=== PATIENT | female | born 1955 | race Two or more races ===

== ENCOUNTER 2022-09-06 13:25 | Inpatient (IN) | payer BC, MEDICAID ==
[~2022-09-06] VITALS: Ht 157.5 cm; Wt 52.7 kg
[~2022-09-06 13:25] MED LIST: enoxaparin 40mg/0.4ml syringe SUBCUT SCH
[2022-09-06 14:00] LABS: BASOPHILS % (AUTO) 0.3 % (0-1); HEMATOCRIT 42.4 % (35.0-45.0); LYMPHOCYTES # (AUTO) 1.3 X10'3 (1.1-4.8); LYMPHOCYTES % (AUTO) 26.7 % (21-51); MEAN CORPUSCULAR HEMOGLOBIN 30.4 PG (27.0-31.0); MEAN CORPUSCULAR VOLUME 92.1 FL (78-98); MEAN PLATELET VOLUME 8.4 FL (7.4-10.4); MONOCYTES # (AUTO) 0.1 X10'3 (0-0.9); MONOCYTES % (AUTO) 1.9 % (2-12); NEUTROPHILS # (AUTO) 3.3 X10'3 (1.8-7.7); NEUTROPHILS % (AUTO) 70.1 % (42-75); PLATELET COUNT 207 X10'3 (140-440); RED BLOOD COUNT 4.61 X10'6 (4.20-5.60); RED CELL DISTRIBUTION WIDTH 13.5 % (11.5-14.5); WHITE BLOOD COUNT 4.7 X10'3 (4.5-11.0)
[2022-09-06 14:19] LABS: APTT 28 SECONDS (22-32)
[2022-09-06 14:25] LABS: ALANINE AMINOTRANSFERASE 74 U/L (12-78); ALBUMIN 3.9 G/DL (3.4-5.0); ALKALINE PHOSPHATASE 192 IU/L (46-116); ANION GAP 9 (8-16); ASPARTATE AMINO TRANSFERASE 65 U/L (10-37); BILIRUBIN,TOTAL 0.4 MG/DL (0.1-1.0); BLOOD UREA NITROGEN 10 MG/DL (7-18); BUN/CREATININE RATIO 12.5 (10.0-20.0); CALCIUM 10.1 MG/DL (8.5-10.1); CHLORIDE 107 MMOL/L (99-107); GLUCOSE 131 MG/DL (70-104); POTASSIUM 4.3 MMOL/L (3.5-5.1); SODIUM 142 MMOL/L (135-145); TOTAL CARBON DIOXIDE 26.5 MMOL/L (24-32); TOTAL PROTEIN 7.8 G/DL (6.4-8.2); eGFR 71 ML/MIN
--- NOTE | 2022-09-06 14:46 | NUR ---
RN OBTAINING IV AT THIS TIME.
--- NOTE | 2022-09-06 15:06 | NUR ---
PT HAVING NEURO CONSULT AT THIS TIME.
[2022-09-06] MEDS ORDERED: iohexol 350MG/ML 100ml bottle IV ONE (15:34)
[2022-09-06 15:40] LABS: CLARITY,URINE CLEAR (Clear); COLOR,URINE STRAW (Yellow); GLUCOSE, URINE NEGATIVE (Neg); KETONES,URINE NEGATIVE (Neg); LEUKOCYTE ESTERASE ,URINE NEGATIVE (Neg); NITRITES, URINE NEGATIVE (Neg); OCCULT BLOOD,URINE MODERATE (Neg); PH,URINE 6.5 (4.8-8.0); PROTEIN,URINE NEGATIVE (Neg); UROBILINOGEN,URINE 0.2 E.U/dL (0.2-1.0)
[2022-09-06 15:52] LABS: SQUAMOUS EPITHELIAL CELL,UR FEW /LPF (FEW); UA COLLECTION TYPE CLN CATCH MIDSTREAM
[2022-09-06 15:53] LABS: BACTERIA,URINE FEW /HPF (Neg); WBC,URINE 0-4 /HPF (0-4)
[2022-09-06 15:54] LABS: CREATINE KINASE 142 U/L (26-192)
[2022-09-06] MEDS ORDERED: methylPREDNISolone sod succ 125mg/2ml vial IV ONE (15:55)
--- NOTE | 2022-09-06 16:17 | NUR ---
GIOVANNA CHAMBERLAIN FROM PHARM. PHARM WILL DEL.
[2022-09-06] MEDS ORDERED: METHYLPREDNISOLONE SOD SUCC IV ONE (16:25)
[2022-09-06] MEDS ORDERED: DEXTROSE 5% IV ONE (16:25)
[2022-09-06] MEDS ORDERED: WATER IV ONE (16:25)
[2022-09-06] MEDS ORDERED: methylPREDNISolone sod succ 1,000 MG in dextrose 5%-water 50ml 50 ML IV ONE (16:30)
--- NOTE | 2022-09-06 16:49 | NUR ---
MRI FORM COMPLETED AND FAXED TO [facility]
--- NOTE | 2022-09-06 17:13 | NUR ---
RN RECeferino CHAMBERLAIN FROM PHARM 2ND REQ
--- NOTE | 2022-09-06 18:04 | NUR ---
PT TAKEN TO [facility]. RN UNABLE TO COMPLETE NIH STROKE SCALE. WILL DO ONCE PT RETURNS.
[2022-09-06] MEDS ORDERED: magnesium 4gm in 100ml NS 100 ML IV PRN (18:10)
[2022-09-06] MEDS ORDERED: potassium Cl 20 mEq SR tablet PO PRN ×2 (18:10)
[2022-09-06] MEDS ORDERED: morphine 2 MG/ML inj. syringe IV PRN ×2 (18:10)
[2022-09-06] MEDS ORDERED: ondansetron/PF 4mg/2ml inj IV PRN (18:10)
[2022-09-06] MEDS ORDERED: magnesium 2GM in 50ml NS 50 ML IV PRN (18:10)
[2022-09-06] MEDS ORDERED: mag hydrox/Alum hydrox/simeth 30ml oral suspension PO PRN (18:10)
[2022-09-06] MEDS ORDERED: potassium Cl 40MEQ/1/2NS 520ml 520 ML IV PRN (18:10)
[2022-09-06] MEDS ORDERED: magnesium hydroxide 30ml (MOM) UD suspension PO PRN (18:10)
[2022-09-06] MEDS ORDERED: HYDROmorphone inj. 0.5 MG/0.5 ML DISP.SYRIN IV PRN (18:10)
[2022-09-06] MEDS ORDERED: magnesium Cl slow-release 64mg tablet PO PRN (18:10)
[2022-09-06] MEDS ORDERED: acetaminophen 325mg tablet PO PRN (18:10)
[2022-09-06 19:26] LABS: HEMOGLOBIN A1C 5.9 % (4.5-6.2)
[2022-09-06] MEDS: docusate sod 100mg capsule PO SCH (19:43)
[2022-09-06] MEDS: K and/or MAG REPLACEMENT MC SCH (19:44)
[2022-09-06] MEDS ORDERED: NO HOME MEDS (21:56)
--- NOTE | 2022-09-06 21:56 | NUR ---
NON-ADMIN'D LOVENOX INJECTION TO START TOMORROW 09/07 PER MD CRISS
--- NOTE | 2022-09-06 23:00 | NUR ---
PT PLACED ON HOSPITAL BED.
[2022-09-07 01:09] LABS: BASOPHILS % (AUTO) 0.1 % (0-1); EOSINOPHILS % (AUTO) 0 % (0-6); HEMATOCRIT 38.6 % (35.0-45.0); MEAN CORPUSCULAR HEMOGLOBIN 30.4 PG (27.0-31.0); MEAN CORPUSCULAR HGB CONC 33.6 g/dL (33.0-36.5); MEAN CORPUSCULAR VOLUME 90.4 FL (78-98); MEAN PLATELET VOLUME 9.2 FL (7.4-10.4); MONOCYTES % (AUTO) 0.8 % (2-12); NEUTROPHILS % (AUTO) 74.1 % (42-75); PLATELET COUNT 186 X10'3 (140-440); RED BLOOD COUNT 4.28 X10'6 (4.20-5.60); RED CELL DISTRIBUTION WIDTH 13.5 % (11.5-14.5); WHITE BLOOD COUNT 4.1 X10'3 (4.5-11.0)
[2022-09-07 01:19] LABS: ALANINE AMINOTRANSFERASE 62 U/L (12-78); ALBUMIN 3.5 G/DL (3.4-5.0); ALKALINE PHOSPHATASE 178 IU/L (46-116); ANION GAP 11 (8-16); ASPARTATE AMINO TRANSFERASE 41 U/L (10-37); BILIRUBIN,TOTAL 0.4 MG/DL (0.1-1.0); BLOOD UREA NITROGEN 11 MG/DL (7-18); BUN/CREATININE RATIO 15.1 (10.0-20.0); CALCIUM 9.8 MG/DL (8.5-10.1); CHLORIDE 106 MMOL/L (99-107); CHOL/HDL RATIO 3.5 (0.00-4.99); CHOLESTEROL 235 MG/DL (0-200); CREATININE 0.73 MG/DL (0.40-0.90); GLUCOSE 172 MG/DL (70-104); HDL CHOLESTEROL 68 MG/DL (35-60); LDL CHOLESTEROL 139 MG/DL (50-100); PHOSPHORUS 3.7 MG/DL (2.3-4.5); POTASSIUM 3.9 MMOL/L (3.5-5.1); SODIUM 140 MMOL/L (135-145); TOTAL CARBON DIOXIDE 23.5 MMOL/L (24-32); TRIGLYCERIDES 46 MG/DL (20-135); eGFR 79 ML/MIN
[2022-09-07 07:30] VITALS: BP 126/54
--- NOTE | 2022-09-07 07:30 | NUR ---
Patient in room PCU 3016. I have received report from Irene HEREDIA and had the opportunity to ask questions and assume patient care. Pt settled into room. Gait somewhat unsteady. Pt denies needs. Call light in reach. Addendum: 09/07/22 at 0917 by Gisel Wilson RN Amended: Links added.
[2022-09-07] MEDS ORDERED: methylPREDNISolone sod succ 1,000 MG in dextrose 5%-water 50ml 50 ML IV SCH (08:00)
[2022-09-07] MEDS ORDERED: methylPREDNISolone sod succ 125mg/2ml vial IV SCH (08:00)
[2022-09-07] MEDS: K and/or MAG REPLACEMENT MC SCH (08:00)
[2022-09-07] MEDS: docusate sod 100mg capsule PO SCH (08:49)
[2022-09-07 12:00] VITALS: BP 124/64
[2022-09-07] MEDS ORDERED: PRED50TA PO (14:20)
[2022-09-07] MEDS ORDERED: ATOR20TA66 PO (14:20)
== END 2022-09-07 15:21 | disposition home or self-care (01) | DRG 546 ==
LOC: ER 13:26 → ED HOLD 18:26 → PCU 3S 09-07 07:30
PROVIDERS: ADMIT Family Medicine; ATTEND Family Medicine
PROC: B3251ZZ Computerized Tomography (CT Scan) of Bilateral Common Carotid Arteries using Low Osmolar Contrast (ICD-10-PCS; principal; 2022-09-06)
PROC: B32G1ZZ Computerized Tomography (CT Scan) of Bilateral Vertebral Arteries using Low Osmolar Contrast (ICD-10-PCS; 2022-09-06)
PROC: B32R1ZZ Computerized Tomography (CT Scan) of Intracranial Arteries using Low Osmolar Contrast (ICD-10-PCS; 2022-09-06)
PROC: B3281ZZ Computerized Tomography (CT Scan) of Bilateral Internal Carotid Arteries using Low Osmolar Contrast (ICD-10-PCS; 2022-09-06)
DX: M31.6 Other giant cell arteritis (principal); G45.9 Transient cerebral ischemic attack, unspecified; R51.9 Headache, unspecified; R03.0 Elevated blood-pressure reading, without diagnosis of hypertension; G43.909 Migraine, unspecified, not intractable, without status migrainosus; F17.210 Nicotine dependence, cigarettes, uncomplicated; Z71.6 Tobacco abuse counseling; Z90.49 Acquired absence of other specified parts of digestive tract
CPT/HCPCS: 36415; 70450; 70496; 70498; 70551; 71045; 80053; 80061; 81001; 82550; 82948; 83735; 84100; 85025; 85610; 85651; 85730; 86140; 93005; 93306; 99285; G0378; J2930; J3490; J7040; J7060; Q9967